=== PATIENT | female | born 2000 | race Caucasian/White ===

== ENCOUNTER 2021-05-23 08:27 | Emergency (ER) | payer MEDICAID ==
[~2021-05-23] VITALS: Ht 160 cm; Wt 59.4 kg
--- NOTE | 2021-05-23 08:28 | NUR ---
oxygen saturation in lobby 96% ra at this time
[2021-05-23 08:40] VITALS: BP 107/75
[2021-05-23 10:31] VITALS: BP 118/82
--- NOTE | 2021-05-23 10:31 | NUR ---
Patient discharged with v/s stable. Written and verbal after care instructions given FOR PANIC ATTACK AND SOB and explained. Patient verbalized understanding. Ambulatory with steady gait. All questions addressed prior to discharge. Advised to follow up with PMD.
== END 2021-05-23 10:31 | disposition home or self-care (01) ==
LOC: MED 08:27
DX: R06.02 Shortness of breath (principal); F41.9 Anxiety disorder, unspecified; R20.0 Anesthesia of skin
CPT/HCPCS: 71045; 93005; 99283; 99285